=== PATIENT | male | born 2000 | race Caucasian/White ===

== ENCOUNTER 2020-09-02 10:50 | Emergency (ER) | payer OTHER, SELFPAY ==
[2020-09-02 10:51] VITALS: BP 119/60; PULSE 80; RESP 16; TEMP 36.6; O2SAT 99; BMI 21.1
--- NOTE | 2020-09-02 11:02 | ED.RN ---
THIS RN TALKED WITH CATALINA FROM [employer] [facility]. WILL BE ENROUTE FOR DRUG TESTING
--- NOTE | 2020-09-02 11:05 | EDS_ITS ---
HPI History of Present Illness Chief Complaint: Laceration Informant: patient Narrative Narrative: 20-year-old male was at work today using a table saw when a piece of wood kicked back into his right hand. He notes injury to the long and ring finger. He denies any other injuries Tetanus Immunization: 5-10 years PFSH PFSH no medical history Home Medications NK 09/02/20 [History Last Taken Unknown] Allergy/AdvReac Type Severity Reaction Status Date / Time No Known Allergies Allergy Verified 09/02/20 10:56 no surgical history Social History Smoking Status: Never smoker ROS ROS ED Constitutional Constitutional ED: Denies chills or weight loss Eyes Eyes: Denies change in vision or diplopia ENT ENT ED: Denies ear pain, rhinorrhea or sore throat Cardiovascular Cardiovascular: Denies chest pain, orthopnea, palpitations or racing heartbeat Respiratory/Chest Respiratory/Chest: Denies cough, dyspnea or orthopnea Gastrointestinal Gastrointestinal: Denies abdominal pain, diarrhea, nausea or vomiting Genitourinary Genitourinary ED: Denies dysuria, hematuria or urinary frequency Musculoskeletal Musculoskeletal: Reports other Details: See HPI ; Denies arthralgias or myalgias Integumentary Reports other Details: Lacerations ; Denies abscess or rash Neurologic Neurologic: Denies headache(s) or weakness Psychiatric Psychiatric: Denies anxiety, depression, suicidal ideation or suicidal thoughts Endocrine Endocrinology: Denies polydipsia, polyphagia or polyuria Allergic/Immunologic Allergic/Immunologic ED: Denies mouth swelling, tongue swelling or urticaria EXAM Physical Exam Const Vital Signs: 09/02/20 10:51 Temperature 97.9 F Temperature Source Temporal Pulse Rate 80 Respiratory Rate 16 Blood Pressure 119/60 Blood Pressure Mean 79 Pulse Ox 99 Oxygen Delivery Method Room Air Positive well nourished and well developed General Appearance ED: well developed HEENT Reports normocephalic, head/scalp atraumatic and moist mucous membranes Eyes PERRL and EOMs intact bilaterally Neck no lymphadenopathy, supple and no JVD Resp normal respiratory effort and clear to auscultation bilaterally Cardio regular rate, regular rhythm and no murmurs GI normal to inspection, nondistended, normoactive bowel sounds and non-tender Palpation: soft Back/Spine no CVA tenderness and normal ROM Extremity Extremity Narrative: On the dorsum of the right long finger is a 1 cm laceration starting approximately the DIP joint and extending just proximal to the nail. There is a 2 cm long superficial skin tear on the dorsum of the right ring finger. Nail armenian was removed and no subungual hematomas noted. General Extremety ED: Negative for edema General Extremity: Negative for edema Neuro oriented x3 and CN's II-XII intact bilaterally Sensorium / Orientation: alert Motor Exam: strength 5/5 throughout Psych mental status grossly normal Mood & Affect: Negative for depressed or tearful Skin no rashes or lesions noted and no wounds MDM MDM MDM Narrative Medical decision making narrative: My interpretation of the plain films of the right hand is no acute fracture. Radiology concurs the long finger underwent local lidocaine. Once adequate anesthesia was obtained the wound was washed with Shur-Clens and explored. No visualization of the tendon or bone was seen. He was closed using a total of 3 simple interrupted 4-0 Ethilon sutures. Wound care discussed with patient. Stitches will need to be removed in 10 days. Radiography Diagnostic Testing: Radiology Impression Hand X-Ray 09/02/20 11:15 IMPRESSION: Normal x-ray examination of the hand. Electronically Signed: Jovani Dunbar MD at 11:44 EDT , Service support , Discharge Plan Triage Chief Complaint: Laceration ED Provider: Mata Snider Dx/Rx/DC Orders Clinical Impression: Finger laceration, Skin tear of hand without complication Instructions: ED Laceration, Hand: All Closures Prescriptions: No Action NK RF: 0 Primary Care Provider: Jeff Rascon Referrals: [facility], [place] [GROUP OF PHYSICIANS] - 10 Day for suture removal Jeff Rascon, DO [Primary Care Provider] - Disposition Disposition: Home, self care
--- NOTE | 2020-09-02 11:15 | RAD_ITS ---
STUDY: X-RAY - RIGHT HAND REASON FOR EXAM: Male, 20 years old. Laceration of the third and fourth fingers. TECHNIQUE: 3 view(s) of the hand. COMPARISON: None. FINDINGS: Normal radiocarpal articulation. Normal distal radioulnar joint. Normal visualized carpal bones. Normal carpal articulations Normal carpometacarpal articulation of the thumb. Normal second through fifth carpometacarpal joints. Normal metacarpi. Normal metacarpophalangeal joint of the thumb. Normal interphalangeal joint of the thumb. Normal proximal and distal phalanges of the thumb. Normal metacarpophalangeal joints of the second through fifth fingers. Normal proximal and distal interphalangeal joints of the second through fifth fingers. Normal phalanges of the second through fifth fingers. The soft tissue structures are unremarkable. RAD/Hand Min 3 Views IMPRESSION: Normal x-ray examination of the hand. Electronically Signed: Jovani Dunbar MD at 11:44 EDT , Service support ,
[2020-09-02] MEDS: Lidocaine 1% (20 ml mdv) 20 ML Vial INFILT (11:42)
== END 2020-09-02 12:12 | disposition home or self-care (01) ==
LOC: ED 12:04
PROVIDERS: Emergency Provider Emergency Medicine; PCP Family Medicine
DX: S61.212A Laceration without foreign body of right middle finger without damage to nail, initial encounter (principal); S61.214A Laceration without foreign body of right ring finger without damage to nail, initial encounter; S61.411A Laceration without foreign body of right hand, initial encounter; X58.XXXA Exposure to other specified factors, initial encounter
CPT/HCPCS: 12001; 73130; 99283